=== PATIENT | female | born 1965 | race Hispanic/Latino ===

== ENCOUNTER 2021-08-19 21:14 | Emergency (ER) | payer OTHER ==
[~2021-08-19] VITALS: Ht 154.9 cm; Wt 63.5 kg
[2021-08-19 21:44] LABS: BASOPHILS % (AUTO) 0.4 % (0.0-5.0); EOSINOPHILS % (AUTO) 5.4 % (0.0-8.0); HEMATOCRIT 35.6 % (36-48); LYMPHOCYTES % (AUTO) 36.9 % (21.0-51.0); MEAN CORPUSCULAR HEMOGLOBIN 29.3 pg (27.0-33.0); MEAN CORPUSCULAR HGB CONC 33.7 g/dL (32.0-36.0); MONOCYTES % (AUTO) 7.6 % (3.0-13.0); NEUTROPHILS % (AUTO) 49.4 % (40.0-77.0); PLATELET COUNT (AUTO) 163 K/uL (130-400); RED BLOOD CELL COUNT(AUTO) 4.09 MIL/uL (4.00-5.50); RED CELL DISTRIBUTION WIDTH 13.6 % (11.0-15.5); WHITE BLOOD COUNT (AUTO) 7.6 K/uL (4.8-10.8)
[2021-08-19 21:54] LABS: POTASSIUM 3.5 mmol/L (3.5-5.1)
[2021-08-19 21:58] LABS: ALBUMIN 3.7 g/dL (3.5-5.0); BILIRUBIN,TOTAL 0.2 mg/dL (0.2-1.0); TOTAL PROTEIN, SERUM 7.6 g/dL (6.0-8.3)
[2021-08-19] MEDS ORDERED: IOHEXOL-350 75 ML VIAL IV ONE (22:26)
[2021-08-19] MEDS ORDERED: ONDANSETRON 4MG INJ IVP ONE (22:30)
[2021-08-19] MEDS ORDERED: MORPHINE 4 MG SYG IVP ONE (22:30)
[2021-08-19] MEDS ORDERED: PANTOPRAZOLE 40 MG/VIAL IVP ONE (22:30)
[2021-08-19] MEDS ORDERED: FAMOTIDINE 20MG TAB PO ONE (22:30)
[2021-08-19 23:08] LABS: APPEARANCE,URINE Clear (CLEAR); BILIRUBIN,URINE Negative (NEGATIVE); COLOR,URINE Yellow (YELLOW); GLUCOSE, URINE (UA) Negative (NEGATIVE); KETONES,URINE Negative (NEGATIVE); LEUKOCYTE ESTERASE ,URINE Trace (NEGATIVE); NITRATE,URINE Negative (NEGATIVE); OCCULT BLOOD,URINE Negative (NEGATIVE); PH,URINE 6.5 (5.0-8.0); PROTEIN,URINE Negative (NEGATIVE); UROBILINOGEN,URINE 0.2 mg/dL (0.2-1.0)
[2021-08-19 23:27] LABS: RBC,URINE 0-1 /HPF (0-1)
[2021-08-19 23:28] LABS: SQUAMOUS EPITHELIAL CELL,UR Moderate /HPF (0-2); YEAST,URINE BUDDING Few /HPF (None Seen)
[2021-08-19 23:29] LABS: BACTERIA,URINE Few /HPF (None Seen)
[2021-08-19] MEDS ORDERED: DICY20TA2 PO (23:33)
[2021-08-19] MEDS ORDERED: FAMO-136 PO (23:33)
[2021-08-19] MEDS ORDERED: ONDA4TAB10 PO (23:33)
[2021-08-19 23:42] VITALS: BP 131/75
== END 2021-08-19 23:46 | disposition home or self-care (01) ==
LOC: EDH 21:14
DX: K29.70 Gastritis, unspecified, without bleeding (principal); F41.9 Anxiety disorder, unspecified; F32.A Depression, unspecified; K21.9 Gastro-esophageal reflux disease without esophagitis; I10 Essential (primary) hypertension; E03.9 Hypothyroidism, unspecified; Z90.89 Acquired absence of other organs; Z90.49 Acquired absence of other specified parts of digestive tract; Z98.890 Other specified postprocedural states
CPT/HCPCS: 36415; 74177; 80053; 81001; 83690; 85025; 93005; 96374; 96375; 99285; C9113; J2270; J2405; Q9967